=== PATIENT | female | born 1955 | race Caucasian/White ===

== ENCOUNTER 2023-09-01 19:27 | Emergency (ER) | payer MEDICARE, BC ==
[~2023-09-01] VITALS: Ht 165.1 cm; Wt 120.3 kg
[2023-09-01] MEDS ORDERED: AMLO5TAB4 PO (19:43)
[2023-09-01] MEDS ORDERED: IRBE150T28 PO (19:43)
[2023-09-01] MEDS ORDERED: METO-358 PO (19:43)
[2023-09-01] MEDS ORDERED: OXYC5TAB3 PO (19:43)
[2023-09-01] MEDS ORDERED: ONDANSETRON 4 MG/2 ML VIAL ONE (20:08)
[2023-09-01] MEDS ORDERED: HYDROMORPHONE 1 MG/1 ML DISP.SYRIN ONE (20:08)
[2023-09-01 20:10] LABS: BASOPHILS % (AUTO) 0.5 % (0.0-2.0); EOSINOPHILS # (AUTO) 0.4 K/uL (0.0-0.7); EOSINOPHILS % (AUTO) 4.6 % (0.0-7.0); HEMATOCRIT 38.5 % (31.2-41.9); LYMPHOCYTES # (AUTO) 0.8 K/uL (0.8-4.8); MEAN CORPUSCULAR HGB CONC 34 g/dL (32.3-35.6); MEAN CORPUSCULAR VOLUME 92.3 fL (75.5-95.3); MONOCYTES # (AUTO) 0.7 K/uL (0.1-1.30); MONOCYTES % (AUTO) 9.3 % (0.0-11.0); NEUTROPHILS # (AUTO) 5.7 K/uL (1.8-8.9); NEUTROPHILS % (AUTO) 74.6 % (38.5-71.5); PLATELET COUNT (AUTO) 222 K/uL (179-408); RED BLOOD CELL COUNT(AUTO) 4.18 MIL/uL (3.63-4.92); RED CELL DISTRIBUTION WIDTH 14.9 % (12.3-17.7); WHITE BLOOD COUNT (AUTO) 7.7 K/uL (3.8-11.8)
[2023-09-01] MEDS: HYDROMORPHONE 1 MG/1 ML DISP.SYRIN IV ONE (20:10)
[2023-09-01] MEDS: IV NORMAL SALINE 1000 ML BAG IV ONE ×2 (20:10→21:37)
[2023-09-01] MEDS: ONDANSETRON 4 MG/2 ML VIAL IV ONE (20:10)
[2023-09-01 20:16] LABS: DIFFERENTIAL COMMENT 1
[2023-09-01 20:17] LABS: CALCIUM 9.4 mg/dL (8.5-10.1); CREATININE 0.6 mg/dL (0.6-1.3); POTASSIUM 3.4 mmol/L (3.5-5.1)
[2023-09-01 20:23] LABS: ALBUMIN 3.4 g/dL (3.4-5.0); BILIRUBIN,DIRECT 0.3 mg/dL (0.0-0.2); TOTAL PROTEIN, SERUM 7.4 g/dL (6.4-8.2)
[2023-09-01] MEDS ORDERED: SWABABLE VALVE TRANSFER SET EA MC ONE (20:38)
[2023-09-01] MEDS ORDERED: IV NORMAL SALINE 250 ML IV ONE (20:38)
[2023-09-01] MEDS ORDERED: IOHEXOL 300MG/ML 100 ML INFUS..BTL ONE (20:38)
[2023-09-01 21:16] LABS: *BILIRUBIN,URIN NEGATIVE (NEGATIVE); *CLARITY,URINE CLEAR (CLEAR); *COLOR,URINE YELLOW (YELLOW); *KETONES,URINE TRACE (NEGATIVE); *PROTEIN,URINE NEGATIVE (NEGATIVE); *UROBILINOGEN,URINE 0.2 E.U./dl (NORMAL); LEUKOCYTE ESTERASE ,URINE NEGATIVE (NEGATIVE); NITRITE, URINE NEGATIVE (NEGATIVE); UGLUCOSE NEGATIVE (NEGATIVE)
[2023-09-01] MEDS ORDERED: ONDA4TAB11 PO (21:36)
[2023-09-01] MEDS ORDERED: HYDR-3980 PO (21:36)
[2023-09-01 21:53] LABS: *BLOOD, URINE TRACE (NEGATIVE)
[2023-09-01 22:01] LABS: BACTERIA,URINE NONE SEEN /HPF (NONE SEEN); RBC,URINE 0-3 /HPF (0-3); SQUAMOUS EPITHELIAL CELL,UR FEW /HPF (NONE SEEN); WBC,URINE 0-3 /HPF (0-3)
[2023-09-01 22:53] VITALS: BP 146/88; TEMP 97.8; O2SAT 95
== END 2023-09-02 00:19 | disposition home or self-care (01) ==
LOC: ER 19:36
DX: G89.18 Other acute postprocedural pain (principal); R10.31 Right lower quadrant pain; E86.0 Dehydration; Z88.8 Allergy status to other drugs, medicaments and biological substances; Z79.899 Other long term (current) drug therapy
CPT/HCPCS: 99285; 74177; 96374; 76705; 96361; 96375; 80076; 80048; 81001; 83690; 85025; 36415; 87086; J2405; Q9967; J1170; J7040 ×2; A4606; A4663